=== PATIENT | female | born 1990 | race Caucasian/White ===

== ENCOUNTER 2025-09-02 00:50 | Emergency (ER) | payer OTHER ==
[~2025-09-02] VITALS: Ht 165.1 cm; Wt 99.8 kg
[2025-09-02] MEDS ORDERED: LORAZEPAM INJ 2 MG/ML VIAL ONE ×3 (01:05→03:48)
[2025-09-02] MEDS: LORAZEPAM INJ 2 MG/ML VIAL IM ONE ×3 (01:10→03:57)
[2025-09-02 01:39] LABS: PLATELET COUNT (AUTO) 291 K/uL (150-450); RED BLOOD CELL COUNT(AUTO) 4.55 MIL/uL (4.0-5.2); RED CELL DISTRIBUTION WIDTH 14.1 % (11.5-15.0); WHITE BLOOD COUNT (AUTO) 7.9 K/uL (4.3-11.0)
[2025-09-02 01:47] LABS: CALCIUM, SERUM 8.8 mg/dL (8.5-10.1); CREATININE 0.8 mg/dL (0.6-1.3); SODIUM SERUM 141 mmol/L (136-145); UREA NITROGEN, BLOOD 15 mg/dL (7-18)
[2025-09-02 01:54] LABS: ALCOHOL, BLOOD 262 mg/dL (0-10); ASPARTATE AMINOTRANSFERASE 41 U/L (15-37); TOTAL PROTEIN, SERUM 8.8 g/dL (6.4-8.2)
[2025-09-02 02:24] LABS: APPEARANCE,URINE CLEAR (CLEAR); BLOOD, URINE NEGATIVE Ery/uL (NEGATIVE); LEUKOCYTE ESTERASE ,URINE NEGATIVE (NEGATIVE); NITRITE, URINE NEGATIVE (NEGATIVE); UGLUCOSE NEGATIVE (NEGATIVE)
[2025-09-02 02:34] LABS: AMPHETAMINE, URINE NEGATIVE (NEGATIVE); BARBITURATE, URINE NEGATIVE (NEGATIVE); BENZODIAZEPINE, URINE NEGATIVE (NEGATIVE); CANNABINOID, URINE NEGATIVE (NEGATIVE); COCCAINE, URINE NEGATIVE (NEGATIVE); OPIATE, URINE NEGATIVE (NEGATIVE)
[2025-09-02] MEDS ORDERED: HALOPERIDOL LACTATE INJ 5 MG/ML VIAL ONE (05:08)
[2025-09-02] MEDS: HALOPERIDOL LACTATE INJ 5 MG/ML VIAL IM ONE (05:15)
[2025-09-02 10:00] VITALS: TEMP 98.3; O2SAT 98
[2025-09-02 13:00] VITALS: BP 125/75
== END 2025-09-02 13:44 | disposition short-term general hospital (02) ==
LOC: ER 00:59
DX: F10.129 Alcohol abuse with intoxication, unspecified (principal); Z79.899 Other long term (current) drug therapy; Z20.822 Contact with and (suspected) exposure to COVID-19; Y90.9 Presence of alcohol in blood, level not specified
CPT/HCPCS: 99285; 96372 ×2; 85025; 80048; 80076; 81003; 36415; 82962; 87426; 80143; 80320; 80307; J2060 ×3; J1630; G0480

== ENCOUNTER 2025-09-09 23:47 | Inpatient (IN) | payer OTHER ==
[~2025-09-09] VITALS: Ht 167.6 cm; Wt 81.6 kg
[2025-09-09 23:59] VITALS: TEMP 98.9
[2025-09-10] MEDS ORDERED: NALOXONE HCL 0.4 MG/ML AMPUL ONE (00:01)
[2025-09-10] MEDS: NALOXONE HCL 0.4 MG/ML AMPUL IV ONE ×2 (00:04→00:13)
[2025-09-10] MEDS ORDERED: NALOXONE PREFILLED SYRINGE 2 MG/2 ML SYRINGE ONE (00:11)
[2025-09-10 00:21] LABS: PLATELET COUNT (AUTO) 227 K/uL (150-450); RED BLOOD CELL COUNT(AUTO) 4.14 MIL/uL (4.0-5.2); RED CELL DISTRIBUTION WIDTH 14.3 % (11.5-15.0); WHITE BLOOD COUNT (AUTO) 6.7 K/uL (4.3-11.0)
--- NOTE | 2025-09-10 00:24 | NUR ---
XRAY AT BEDSIDE
--- NOTE | 2025-09-10 00:24 | NUR ---
URINE SPECIMEN SENT TO LAB
[2025-09-10 00:34] LABS: CALCIUM, SERUM 8.4 mg/dL (8.5-10.1); CREATININE 0.7 mg/dL (0.6-1.3); SODIUM SERUM 143 mmol/L (136-145); UREA NITROGEN, BLOOD 14 mg/dL (7-18)
[2025-09-10 00:39] LABS: ALCOHOL, BLOOD 178 mg/dL (0-10); ASPARTATE AMINOTRANSFERASE 32 U/L (15-37); TOTAL PROTEIN, SERUM 8.0 g/dL (6.4-8.2)
[2025-09-10 00:41] LABS: APPEARANCE,URINE CLEAR (CLEAR); BLOOD, URINE 1+ Ery/uL (NEGATIVE); LEUKOCYTE ESTERASE ,URINE NEGATIVE (NEGATIVE); NITRITE, URINE NEGATIVE (NEGATIVE); UGLUCOSE NEGATIVE (NEGATIVE)
[2025-09-10 00:43] LABS: PREGNANCY TEST URINE QUAL NEGATIVE (NEGATIVE)
[2025-09-10 00:52] LABS: ADD URINE CULTURE NO
[2025-09-10 00:53] LABS: AMPHETAMINE, URINE NEGATIVE (NEGATIVE); BARBITURATE, URINE NEGATIVE (NEGATIVE); BENZODIAZEPINE, URINE NEGATIVE (NEGATIVE); CANNABINOID, URINE NEGATIVE (NEGATIVE); COCCAINE, URINE NEGATIVE (NEGATIVE); OPIATE, URINE NEGATIVE (NEGATIVE)
[2025-09-10 07:20] VITALS: BP 136/74; O2SAT 96
--- NOTE | 2025-09-10 07:20 | NUR ---
assume patient care. connected to monitor, arousable to pain stimuli only. stable vital signs. will continue to moonitor.
--- NOTE | 2025-09-10 07:46 | NUR ---
LAUREN ACHARYA CALLED [phone] 3,1 SPEAKING WITH KYARA WEEKS.
--- NOTE | 2025-09-10 08:44 | NUR ---
bed assigned 113.2 admitting aware.
--- NOTE | 2025-09-10 09:20 | NUR ---
OFFICE MACHINES TEACHER NOTES RECEIVED PATIENT FROM ER, REPORT GIVEN BY KYARA. PATIENT ALERT ORIENTED X 4. NO ACUTE DISTRESS NOTED. BREATHING UNLABORED. IV ACCESS ON RIGHT AC PATENT AND INTACT, NO REDNESS NO BLEEDING NOTED. PLACED ON GAS TURBINE MECHANIC READS SINUS RHYTHM , HEART RATE 85. ORIENTED TO THE ROOM. CALL LIGHT PLACED WITHIN REACH. NEEDS ATTENDED. SAFETY MEASURES IN PLACE. WILL CONTINUE TO MONITOR ACCORDINGLY
[2025-09-10] MEDS ORDERED: IV D5/0.45 NACL 1,000 ML IV PRN (09:30)
[2025-09-10] MEDS ORDERED: MAG HYDROX/AL HYDROX/SIMETH 30 ML UDC PO PRN (09:30)
[2025-09-10] MEDS ORDERED: ACETAMINOPHEN 325 MG TABLET PO PRN (09:30)
[2025-09-10] MEDS ORDERED: Z GUARD REMEDY 4 OZ OINT TP PRN (09:30)
[2025-09-10] MEDS: ENOXAPARIN SODIUM 40 MG/0.4 ML DISP.SYRIN SQ SCH (09:30)
[2025-09-10] MEDS ORDERED: MAGNESIUM HYDROXIDE 30 ML UDC PO PRN (09:30)
[2025-09-10] MEDS ORDERED: ONDANSETRON HCL/PF 4 MG/2 ML VIAL IVP PRN (09:30)
--- NOTE | 2025-09-10 10:04 | NUR ---
PATIENT REFUSED LOVENOX, RISK AND BENEFITS EXPLAINED, PATIENT VERBALIZED UNDERSTANDING
--- NOTE | 2025-09-10 10:13 | NUR ---
RN NOTES POWER SHEAR OPERATOR EMMA LEMONS MADE AWARE THAT PATIENT REFUSING MEDICATIONS, IV FLUIDS AND LOVENOX. RECEIVED NEW ORDER TO CHANGE DIET TO REGULAR, ORDER CLARIFIED AND READ BACL WITH POWER SHEAR OPERATOR, NOTED AND CARRIED OUT
--- NOTE | 2025-09-10 10:59 | NUR ---
PATIENT SIGNED AMA DESPITE EXPLANATION OF RISK INCLUDING .VERBALIZED SHE CALLED SOMEBODY TO PICK HER UP. JOANA CARTER NP OK TO DO AMA LONG SOMEBODY PLUG ASSEMBLER PT.PHYSICALLY.SITTER AT BEDSIDE FOR NOW.
--- NOTE | 2025-09-10 10:59 | NUR ---
patient dressed up talking on phone.
--- NOTE | 2025-09-10 10:59 | NUR ---
clarified with emma hollins grease worker if wanted to call crisis eval on pt. since she is insisting to leave per EMMA narvaez and ordered sitter for now.
--- NOTE | 2025-09-10 11:08 | NUR ---
RECEIVED A CALL FROM [facility], SAID THEY ARE CLOSING THE CASE.
--- NOTE | 2025-09-10 11:45 | NUR ---
PATIENT SERVICE ASSOCIATE AMA NOTES PATIENT INSISTING ON LEAVING THE HOSPITAL DESPITE OF EXPLANATION OF RISK AND BENEFITS. SHE DOESN'T WANNA WAIT FOR HER RIDE AND WANTED TO GO OUT OF THE HOSPITAL. PATIENT SUDDENLY WALKING SO FAST TO GO OUTSIDE OF THE ROOM AND WENT OUT OF THE HOSPITAL VERBALIZING SHE'S LEAVING ,WALKED WITH PATIENT. PATIENT ALERT ORIENTED X 4. NO ACUTE DISTRESS NOTED. AMBULATORY STEADY ON HER FEET. SUPPLIER DEVELOPMENT MANAGER EMMA LEMONS , TILLER MAN PRIYANK HOFF AND CHARGE NURSE PAMELA. ALL BELONGINGS ACCOUNTED FOR. AMA FORMED SIGNED BY THE PATIENT. IV ACCESS REMOVED , NO COMPLICATION NOTED.
[2025-09-11] MEDS ORDERED: PANTOPRAZOLE 40 MG VIAL IV SCH (09:00)
== END 2025-09-10 11:55 | disposition left against medical advice (07) | DRG 816 ==
LOC: ER 23:58 → TELE1 09-10 08:52
DX: T51.0X1A Toxic effect of ethanol, accidental (unintentional), initial encounter (principal); G92.8 Other toxic encephalopathy; F10.10 Alcohol abuse, uncomplicated; E66.9 Obesity, unspecified; Y92.039 Unspecified place in apartment as the place of occurrence of the external cause; Y90.6 Blood alcohol level of 120-199 mg/100 ml; Z53.29 Procedure and treatment not carried out because of patient's decision for other reasons; T42.4X1A Poisoning by benzodiazepines, accidental (unintentional), initial encounter; F13.90 Sedative, hypnotic, or anxiolytic use, unspecified, uncomplicated
CPT/HCPCS: 36415; 70450-TC; 71045-TC; 80048-TC; 80076-TC; 81001; 82962-TC; 84702-TC; 84703-TC; 85025-TC; 98960; G0378; G0480; J2312